=== PATIENT | female | born 1955 | race Caucasian/White ===

== ENCOUNTER → 2017-02-23 | Outpatient (CLI) | payer OTHER, MEDICARE ==
[~2017-02-23] MED LIST: ALBUTEROL2.5 MG/NEB IN; BENTYL20 MG PO; CALCIUM & MAGNE1 CAP PO; CLINDAMYCIN HC150 MG PO; CYMBALTA20 MG PO; DICLOFENAC SOD100 M1 PO; DICYCLOMINE20 MG PO; DIFLUCAN 100MG100 MG PO; DULOXETINE HYDR60 MG PO; DUONEB 3 MG/3 ML3 ML IH; ESTERIFIED ESTR PO; FUROSEMIDE 40MG40 M1 PO; IBU800 M1 PO; LEVAQUIN500 MG PO; LEVAQUIN750 MG PO; LYRICA150 MG PO; Lyrica50 MG PO; MEDROL 4MG. DOSE4 MG PO; MIRALAX17 GM/DOSE PO; MULTI VITAMINS1 TA1 PO; NICOTINE PATCH;21 MG TD; NICOTINE21 MG/24 H TD; NYSTATIN 100000 UNIT/ML PO; PREDNICOT20 MG PO; PREDNISONE 20MG20 MG; PROAIR HFA0.09 MG/AC IH; PROTONIX40 MG PO; SALMETEROL-F28 PUFF1 IN; SINGULAIR 10 MG10 MG PO; TOVIAZ8 MG PO; TRAZODONE50 MG PO; VICODIN 7.5/501 EACH PO; VICOPROFEN 7.51 TAB PO; VITAMIN B1250 MCG PO; VITAMIN C250 M1; VITAMIN D400 I1 PO; XANAX 1MG TABLET1 MG PO; ZITHROMAX Z-PA250 M1 PO; ZITHROMAX Z-PA250 M2 PO
--- NOTE | 2017-02-23 10:51 | CARDIOVASCULAR REPORT ---
"Venous Exam Indications: 729.5 Pain in limb. IMPRESSIONS 1. There is no evidence of significant Reflux. 2. No evidence of deep or superficial vein thrombosis involving the left lower extremity History: Risk factors: Malignancy: Ovarian. Left lower extremity venous duplex evaluation. Doppler flow study including spectral analysis, color and gardiner scale imaging. Location: Vascular laboratory. Patient status: Outpatient. Tables: Venous flow and imaging: + +-------+ + |Location |Overall|Flow properties | + +-------+ + |Left common femoral |Patent |Normal phasicity; spontaneous; | | | |normal augmentation; compressible | + +-------+ + |Left saphenofemoral junction|Patent |Compressible | + +-------+ + |Left profunda femoral |Patent |Compressible | + +-------+ + |Left femoral |Patent |Normal phasicity; spontaneous; | | | |normal augmentation; compressible | + +-------+ + |Left greater saphenous |Patent |Normal phasicity; spontaneous; | | | |normal augmentation; compressible | + +-------+ + |Left popliteal |Patent |Normal phasicity; spontaneous; | | | |normal augmentation; compressible | + +-------+ + |Left posterior tibial |Patent |Compressible | + +-------+ + |Left peroneal |Patent |Compressible | + +-------+ + |Left gastrocnemius |Patent |Compressible | + +-------+ + |Left soleal |Patent |Compressible | + +-------+ + (Report amended ) Electronically signed by: Eduardo Zhang [id number]"
== END ==
LOC: RAD 10:00
DX: S89.92XA Unspecified injury of left lower leg, initial encounter (principal); R60.0 Localized edema

== ENCOUNTER → 2017-02-24 | Outpatient (CLI) | payer OTHER, MEDICARE ==
[2017-02-24 13:22] LABS: AEROMONAS NOT DETECTED (NOT DETECTE); ASTROVIRUS NOT DETECTED (NOT DETECTE); CYCLOSPORA CAYETANENSIS NOT DETECTED (NOT DETECTE); E COLI O157 NOT DETECTED (NOT DETECTE); ENTEROAGGREGATIVE E COLI NOT DETECTED (NOT DETECTE); ENTEROPATHOGENIC E COLI NOT DETECTED (NOT DETECTE); ENTEROTOXIGENIC E COLI NOT DETECTED (NOT DETECTE); NOROVIRUS NOT DETECTED (NOT DETECTE); SAPOVIRUS NOT DETECTED (NOT DETECTE); SHIGA-LIKE TOXIN PROD. E COLI NOT DETECTED (NOT DETECTE); SHIGELLA/ENTEROINVASIVE E COLI NOT DETECTED (NOT DETECTE); VIBRIO CHOLERAE NOT DETECTED (NOT DETECTE)
== END ==
LOC: LAB 13:20
PROVIDERS: Internal Medicine
DX: K52.9 Noninfective gastroenteritis and colitis, unspecified (principal)